=== PATIENT | female | born 1955 | race Caucasian/White ===

== ENCOUNTER 2018-03-20 02:36 | Emergency (ER) | payer OTHER ==
[~2018-03-20 02:36] MED LIST: /GUAIMAX PO; AMOX500T PO; PRED10TA2 PO; ZOMI5TAB3 PO
[2018-03-20] MEDS ORDERED: NS 1,000 ML IV ONE (03:45)
[2018-03-20] MEDS ORDERED: METOCLOPRAMIDE INJ 10MG/2ML VIAL (J2765) IV ONE (03:45)
[2018-03-20] MEDS ORDERED: KETOROLAC 30 MG/ML VIAL (J1885) IV ONE ×2 (03:45→05:15)
[2018-03-20] MEDS ORDERED: diphenhydrAMINE INJ 50MG/ML VIAL (J1200) IV ONE (03:45)
[2018-03-20 04:18] LABS: BLOOD UREA NITROGEN 13 MG/DL (7-18); CALCIUM LEVEL 8.6 MG/DL (8.8-10.2); CARBON DIOXIDE LEVEL 25 MEQ/L (21-32); CHLORIDE LEVEL 110 MEQ/L (98-107); CREATININE FOR GFR 0.98 MG/DL (0.55-1.30); GLOMERULAR FILTRATION RATE > 60.0 (>45); GLUCOSE, FASTING 101 MG/DL (70-100); POTASSIUM SERUM 3.4 MEQ/L (3.5-5.1); SODIUM LEVEL 144 MEQ/L (136-145)
[2018-03-20] MEDS ORDERED: CIPR-249 PO (05:08)
[2018-03-20] MEDS ORDERED: CIPROFLOXACIN 500 MG TAB PO ONE (05:15)
[2018-03-20 05:22] VITALS: BP 104/58
== END 2018-03-20 05:23 | disposition home or self-care (01) ==
LOC: M ED 02:36
DX: G43.909 Migraine, unspecified, not intractable, without status migrainosus (principal); N39.0 Urinary tract infection, site not specified
CPT/HCPCS: 80048; 81001; 87088; 87186; 96374; 96375; 96376; 99284; J1200; J1885; J2765

== ENCOUNTER → 2019-03-29 | Outpatient (REF) | payer OTHER ==
[~2019-03-29] MED LIST changes: +CIPR-249 PO
[2019-03-29 13:11] LABS: CHOLESTEROL RISK RATIO 4.24 (<5); TOTAL 25(OH) VITAMIN D 37.4 NG/ML (30.0-100.0)
== END ==
LOC: M LABDRWAD 12:23
PROVIDERS: ATTEND Family Medicine
DX: Z79.899 Other long term (current) drug therapy (principal)

== ENCOUNTER → 2020-09-19 | Outpatient (CLI) | payer OTHER | LOC: M WUC 09:32 | PROVIDERS: ATTEND Family Medicine | DX: E87.6 Hypokalemia (principal) ==

== ENCOUNTER 2021-11-22 10:37 | Emergency (ER) | payer OTHER ==
[~2021-11-22] VITALS: Ht 157.5 cm; Wt 68.2 kg
[2021-11-22 10:38] VITALS: BP 117/68
[2021-11-22] MEDS ORDERED: K-TA10TA2 PO (10:45)
[2021-11-22] MEDS ORDERED: HYDR12.55 PO (10:45)
[2021-11-22] MEDS ORDERED: SING4CHW9 PO (10:45)
[2021-11-22] MEDS ORDERED: SUMA25TA3 PO (10:45)
[2021-11-22] MEDS ORDERED: SYMB16INH INH (10:45)
[2021-11-22 11:41] VITALS: O2SAT 98
== END 2021-11-22 11:47 | disposition home or self-care (01) ==
LOC: M ED 10:37
DX: U07.1 COVID-19 (principal); J45.909 Unspecified asthma, uncomplicated; D86.9 Sarcoidosis, unspecified

== ENCOUNTER → 2022-09-20 | Outpatient (CLI) | payer OTHER ==
[~2022-09-20] MED LIST changes: +HYDR12.55 PO; +MONT4TAB2 PO; +POTA-165 PO; +SUMA25TA3 PO; +SYMB16INH INH
== END ==
LOC: M WUC 11:27
PROVIDERS: ATTEND Internal Medicine Gastroenterology
DX: R06.02 Shortness of breath (principal)